=== PATIENT | female | born 1980 | race Caucasian/White ===

== ENCOUNTER 2018-11-19 09:30 | Emergency (ER) | payer MEDICAID, SELFPAY ==
[2018-11-19 09:32] VITALS: BP 133/78; PULSE 72; RESP 17; TEMP 36.7; O2SAT 97; BMI 39.3
--- NOTE | 2018-11-19 09:57 | ED.DEP ---
ED Disposition - Plan for ED Patient: Instructions: Acute Sinusitis Referrals: Roderick Good DO [NON CLINICAL AFFILIATE] -
--- NOTE | 2018-11-19 10:01 | ED.DEP ---
ED Disposition - Plan for ED Patient: Instructions: Acute Sinusitis Prescriptions: Guaifenesin/Pseudoephedrne HCl [Mucinex D ER 1,200-120 mg Tab] 1 each PO BID PRN #20 tab.er.12h PRN Reason: Cough/Congestion Referrals: Roderick Good DO [NON CLINICAL AFFILIATE] -
--- NOTE | 2018-11-19 10:05 | ED.VISSUMM ---
- ER Visit Summary Date of Service: 11/19/18 Chief Complaint: Sinus congestion History of Present Illness: The patient is a 38 F presenting with sinus congestion x2 days. Patient states that she has tried Tylenol at home. She has pain in both maxillary sinuses. She states she feels congested and has had rhinorrhea. She denies fever. Denies sore throat. Denies chest pain, shortness of breath. Denies cough. Denies abdominal pain, nausea, vomiting, diarrhea. Denies other complaints. Physical Examination: Vitals are stable. Patient is afebrile. Alert no acute distress. HEENT exam bilateral maxillary sinus tenderness. Pharynx is normal. Uvula midline. TMs normal bilaterally Neck is supple. No meningismus Lungs are clear and equal bilaterally. Heart is regular rate and rhythm. Abdomen is soft nontender nondistended. Extremities are unremarkable. Skin is warm and dry. No rash Remainder of exam is unremarkable. Emergency Department Course and Treatment: Patient was given prescription for Mucinex D. She is advised to follow-up with Dr. Good on-call for no doctor. Advised to return to ED for worsening complaints. Disposition: Discharge home Impression: Sinusitis This note was generated with [employer] dictation software. It may contain incorrect words, spelling, and punctuation that were not noted in review of the chart prior to signing ED Disposition - Plan for ED Patient: Instructions: Acute Sinusitis Prescriptions: Guaifenesin/Pseudoephedrne HCl [Mucinex D ER 1,200-120 mg Tab] 1 ea PO BID PRN #20 tab.er.12h PRN Reason: Cough/Congestion Prescription Printed Referrals: Roderick Good DO [NON CLINICAL AFFILIATE] -
== END 2018-11-19 10:38 | disposition home or self-care (01) ==
LOC: ED 10:21
PROVIDERS: Emergency Provider Emergency Medicine
DX: J32.9 Chronic sinusitis, unspecified (principal); Z72.0 Tobacco use
CPT/HCPCS: 99282

== ENCOUNTER → 2019-03-26 13:36 | Outpatient (CLI) | payer MEDICAID, SELFPAY ==
[2019-03-19 13:04] VITALS: BMI 39.3
--- NOTE | 2019-03-26 13:37 | BI_ITS ---
MAMMOGRAPHY - BILATERAL SCREENING REASON FOR EXAM: Female, 38 years old. Routine annual screening examination. PERTINENT HISTORY: Non-contributory. Remote right excisional breast biopsy. TECHNIQUE: Digital bilateral breast liat (3D mammographic acquisition) in the CC and MLO projections. 2-D mediolateral oblique (MLO) and craniocaudad (CC) views of both breasts were obtained. CAD: Full Field Digital Mammography with Computer Added Detection was performed. COMPARISON: Comparison is made with prior examination dated September 16, 2014. FINDINGS: Breast Composition: The breasts are extremely dense, which lowers the sensitivity of mammography. There are no dominant masses or suspicious calcifications. No other significant abnormalities are identified. There has been no significant change since the prior study. BI/SCREEN MAMM (CAD) W/LIAT BILAT IMPRESSION: Stable bilateral screening mammogram. Yearly follow-up mammogram recommended. (A) ASSESSMENT CATEGORY: BIRADS Category 1: Negative. A letter regarding these results will be sent to the patient by the facility within 30 days. Approximately 10% of breast cancers are not detected by mammography. A normal mammogram should not delay biopsy of a clinically suspicious abnormality. [id number] Electronically Signed: Sanjeev Manrqiue, at 8:46 EST , Service support ,
--- NOTE | 2019-03-26 14:10 | RAD_ITS ---
STUDY: X-RAY - LEFT KNEE REASON FOR EXAM: Female, 38 years old. Pain. TECHNIQUE: 2 view(s) of the knee. COMPARISON: None. FINDINGS: Normal visualized distal femur. Normal visualized proximal tibia and fibula. Normal proximal tibiofibular articulation. There is no acute fracture, dislocation or destructive osseous pathology. Normal medial femorotibial compartment. Normal lateral femorotibial compartment. Normal patellofemoral articulation. There is no demonstrated joint effusion. The soft tissue structures are unremarkable. RAD/Knee 1 or 2 Views IMPRESSION: Normal x-ray examination of the knee. Electronically Signed: Kendall Kelly DO at 19:51 EST Tel [phone], Service support ,
== END ==
PROVIDERS: PCP Internal Medicine; Referring Provider Internal Medicine; Visit Provider Internal Medicine
DX: Z12.31 Encounter for screening mammogram for malignant neoplasm of breast (principal); M25.562 Pain in left knee
CPT/HCPCS: 73560; 77063; 77067

== ENCOUNTER 2019-04-10 16:04 | Emergency (ER) | payer MEDICAID, SELFPAY ==
[2019-03-19 13:04] VITALS: BMI 39.3
[2019-04-10 16:05] VITALS: BP 125/87; PULSE 94; RESP 17; TEMP 36.7; O2SAT 97; BMI 39.6
--- NOTE | 2019-04-10 16:21 | ED.DCSUM_ITS ---
- ER Visit Summary Date of Service: 04/10/19 Chief Complaint: Cough History of Present Illness: The patient is a 38 F who presents with a cough that is been getting worse over the past 2 days. Patient also admits to some wheezing in her chest. Patient denies any sputum production. Patient admits to general myalgias. Patient states she feels short of breath at times. Patient denies any chest pain. Patient states she did have some recent upper respiratory congestion but states this has improved. Patient admits to general weakness but denies any headaches. Patient denies any rashes or hives. Physical Examination: Vital signs are stable. Patient is afebrile. Patient is in no acute distress. Oral mucosa is pink and moist. Oropharynx is clear. Neck is supple. Trachea is midline. There is no JVD. Heart was regular rate and rhythm. Lungs showed diffuse expiratory wheezing. There is good respiratory effort. There are no retractions noted. Abdomen is soft. Bowel sounds are normal. There is no tenderness. Cranial nerves II through XII are intact. There are no focal motor or sensory deficits noted. Test Results: Influenza swab was obtained and was negative. PA and lateral chest x-ray was obtained. There is no acute cardiopulmonary process. This was interpreted by the radiologist and myself. Emergency Department Course and Treatment: Patient was advised of her findings. Patient was instructed to follow-up with her primary care physician in 5 to 7 days. Patient was instructed to take [id number] decongestants and cough medicines as needed. Patient was instructed to drink plenty of fluids. Patient understood and was agreeable with the plan. All questions were answered. Disposition: Discharge home Impression: Viral bronchitis This note was generated with [employer] dictation software. It may contain incorrect words, spelling, and punctuation that were not noted in review of the chart prior to signing ED Disposition - Plan for ED Patient: Disposition: Home or Assisted Living Diagnosis: Viral upper respiratory tract infection with cough Instructions: BRONCHITIS, No Antibiotic (Adult) Referrals: Karissa Verma MD [Primary Care Provider] - 5-7 Days
[2019-04-10 16:38] VITALS: PULSE 887; RESP 18
[2019-04-10] MEDS: Ipratropium/Albuterol Sulfate 3 ML AMPUL.NEB INHALATION (16:38)
--- NOTE | 2019-04-10 16:58 | RAD_ITS ---
STUDY: X-RAY CHEST REASON FOR EXAM: Female, 38 years old. COUGH TECHNIQUE: Frontal and lateral views of the chest. COMPARISON: None. FINDINGS: The lungs are clear and expanded. There is no demonstrated pleural abnormality. Normal size heart. Normal mediastinum and chanda. Normal visualized pulmonary arteries. Normal visualized aortic arch and descending thoracic aorta. Normal visualized thoracic spine. Normal visualized ribs, clavicles, and shoulders. There is no demonstrated abnormality of the visualized soft tissue structures of the upper abdomen. RAD/Chest PA and Lateral IMPRESSION: Normal x-ray examination of the chest. Electronically Signed: Brad Busby MD at 17:21 EST , Service support ,
[2019-04-10 17:09] VITALS: BP 122/84; PULSE 88; RESP 16; O2SAT 97
== END 2019-04-10 18:24 | disposition home or self-care (01) ==
PROVIDERS: Emergency Provider Emergency Medicine; PCP Internal Medicine
DX: J20.8 Acute bronchitis due to other specified organisms (principal); I10 Essential (primary) hypertension; F41.9 Anxiety disorder, unspecified; Z72.0 Tobacco use
CPT/HCPCS: 71046; 87804; 94640; 99282

== ENCOUNTER → 2019-07-17 14:09 | Outpatient (CLI) | payer MEDICAID, SELFPAY ==
[2019-07-17 10:51] VITALS: BMI 38.8
[2019-07-17 15:11] LABS: Absolute Lymphocyte Count 3.14 X10^3/uL (0.83-4.51); Absolute Neutrophil Count 4.5 X10^3/uL (2.0-7.7); Basophil# 0.06 X10^3/uL; Basophil% 0.7 % (0-1); Eosinophil# 0.27 X10^3/uL; Eosinophils% 3.2 % (0-5); Hematocrit 42.5 % (37-47); Hemoglobin 13.9 g/dL (12.0-15.0); Lymphocyte # 3.14 X10^3/ul (4.0); Lymphocyte % 36.9 % (19-41); Mean Corp Hgb Conc 32.7 g/dL (32-36); Mean Corpuscular Hgb 28.7 pg (27.0-32.0); Mean Corpuscular Volume 87.6 fL (81-99); Mean Platelet Vol. 10.6 fl (6.2-12.0); Monocyte# 0.52 X10^3/uL; Monocyte% 6.1 % (0-10); NRBC Flagged by Analyzer 0 % (0-5); Neutrophil # 4.48 X10^3/uL (2.7-7.7); Neutrophil % 52.7 % (47-70); Platelet Count 242 K/mm3 (150-450); RBC Distribution Width CV 14.4 % (11.6-14.6); RBC Distribution Width SD 46.3 fl (35.1-43.9); Red Blood Count 4.85 M/mm3 (4.2-5.4); White Blood Count 8.5 K/mm3 (4.4-11.0)
[2019-07-17 15:24] LABS: ALB/GLOB Ratio 0.9 RATIO (0.9-2.4); AST(SGOT) 30 U/L (15-37); Alanine Aminotransfer ALT/SGPT 37 U/L (13-56); Albumin, Serum 3.5 g/dL (3.2-5.0); Alkaline Phosphatase 103 U/L (45-117); Anion Gap 6 (5-15); BUN 7 mg/dL (7-18); BUN/Creat Ratio 10.1 RATIO (10-20); Calcium,Total 8.9 mg/dL (8.5-10.1); Chloride 110 mmol/L (98-107); Creatinine, Serum 0.69 mg/dL (0.55-1.02); EST Glomerular Filtration Rate 99 mL/min (>60); Est Glom Filt Rate - Afr Amer 120 mL/min (>60); Globulin 3.9 g/dL (2.2-4.2); Glucose 114 mg/dL (74-106); Protein, Total 7.4 g/dL (6.4-8.2); Sodium Level 142 mmol/L (136-145)
== END ==
PROVIDERS: PCP Internal Medicine; Referring Provider Internal Medicine; Visit Provider Internal Medicine
DX: K58.9 Irritable bowel syndrome, unspecified (principal)
CPT/HCPCS: 80053; 85025

== ENCOUNTER 2019-09-25 11:58 | Emergency (ER) | payer MEDICAID, SELFPAY ==
[2019-09-17 09:06] VITALS: BMI 39.6
[2019-09-25 11:59] VITALS: BP 163/102; PULSE 112; RESP 16; TEMP 36.1; O2SAT 98; BMI 38.8
--- NOTE | 2019-09-25 12:05 | ED.DCSUM_ITS ---
History of Present Illness Chief Complaint: Allergic Reaction Narrative: 39-year-old female presents with itching and swelling of the face. She states she makes c at home and she states she uses the nontoxic resin. She wears gloves on her hands and has had reactions on her hands that she uses cortisone cream for. She believes she inadvertently touched her face and now she has itching and swelling of her face. She has no swelling of her airway. No trouble breathing or swallowing. There is no rash elsewhere. She has no new soaps, dyes, detergents, linens etc. Past Medical History - Allergies and Home Meds Allergies/Adverse Reactions: Allergies No Known Allergies Allergy (Verified 09/25/19 11:58) Primary Care Physician: Karissa Verma MD [Primary Care Provider] - Prior records reviewed: Yes Lives: With Family Smoking Status: Current every day smoker Alcohol: None Drugs: None Review of Systems General: Denies: Chills, Fever, Sweats Eyes: Denies: Visual changes - bilaterally, Diplopia ENT: Denies: Rhinorrhea, Sore throat Cardiovascular: Denies: Chest pain, Palpitations Respiratory: Denies: Dyspnea, Cough, Dyspnea on exertion Gastrointestinal: Denies: Abdominal pain, Nausea, Vomiting, Diarrhea, Melena, Hematochezia Genitourinary: Denies: Dysuria, Hematuria, Frequency Musculoskeletal: Denies: Back pain, Extremity Pain Skin: Reports: Rash. Denies: Wounds Neurological: Denies: Headache, Weakness, Numbness Physical Exam Vital Signs/Narrative: Vital Signs Temp Pulse Resp BP Pulse Ox 09/25/19 11:59 97 F L 112 H 16 163/102 H 98 General: Well nourished, Well developed, No Acute Distress Head: - - Generalized facial swelling and rash with slight erythema. She has edema under her eyelids. Eyes: Perrl, EOMI ENT: Moist mucous membranes, No rhinorrhea Neck: Supple, Nontender Cardiovascular: Regular rate, Regular rhythm Respiratory: No distress Skin: Normal color, Rash - Rash as described above Neurological: Alert, Oriented x3 Psychological: Normal affect, Normal Mood Diagnostic/Tx/Re-eval - Medical Decision Making Patient presents for evaluation of allergic reaction secondary to epoxy resin that she uses for making cups. Her exam only shows a localized reaction to the face. I will start her on prednisone for home. She is counseled to wear face protection and also wear gloves. She acknowledged understanding. She will return for any new or worsening symptoms. Patient stable for discharge. ED Disposition - Plan for ED Patient: Disposition: Home or Assisted Living Diagnosis: Contact dermatitis Instructions: ED General Allergic Reactions Prescriptions: predniSONE tablet 60 mg PO DAILY #15 tab Transmission Status: Pending to [id number] Referrals: Karissa Verma MD [Primary Care Provider] -
[2019-09-25] MEDS: predniSONE 20 MG Tablet 60 MG PO (12:41)
== END 2019-09-25 12:47 | disposition home or self-care (01) ==
LOC: ED 12:41
PROVIDERS: Emergency Provider Student in an Organized Health Care Education/Training Program; PCP Internal Medicine
DX: L23.89 Allergic contact dermatitis due to other agents (principal); F17.200 Nicotine dependence, unspecified, uncomplicated
CPT/HCPCS: 99283

== ENCOUNTER → 2019-10-24 | Outpatient (CLI) | payer MEDICAID, SELFPAY ==
[2019-09-25 11:59] VITALS: BMI 38.8
[2019-10-26 14:12] LABS: H. PYLORI STOOL AG Negative (Negative)
== END | disposition home or self-care (01) ==
PROVIDERS: PCP Internal Medicine
DX: K58.0 Irritable bowel syndrome with diarrhea (principal)
CPT/HCPCS: 83630; 87493; 87506

== ENCOUNTER 2020-08-22 15:41 | Emergency (ER) | payer MEDICAID, SELFPAY ==
[2020-08-22 15:42] VITALS: BP 147/93; PULSE 107; RESP 18; TEMP 36.1; O2SAT 99; BMI 40.6
== END 2020-08-22 16:12 | disposition left against medical advice (07) ==
LOC: ED 16:15
PROVIDERS: PCP Internal Medicine
DX: Z53.21 Procedure and treatment not carried out due to patient leaving prior to being seen by health care provider (principal)

== ENCOUNTER 2020-08-22 20:27 | Emergency (ER) | payer MEDICAID, SELFPAY ==
[2020-08-22 15:42] VITALS: BMI 40.6
[2020-08-22 20:27] VITALS: BP 136/85; PULSE 106; RESP 16; TEMP 36.3; O2SAT 97; BMI 39.6
--- NOTE | 2020-08-22 20:49 | RAD_ITS ---
STUDY: X-RAY - RIGHT HAND REASON FOR EXAM: Female, 39 years old. lump on posterior hand around 4-5th MC area, x several days with pain NKI area marked on lateral TECHNIQUE: 3 view(s) of the hand. COMPARISON: None. FINDINGS: Normal radiocarpal articulation. Normal distal radioulnar joint. Normal visualized carpal bones. Normal carpal articulations Normal carpometacarpal articulation of the thumb. Normal second through fifth carpometacarpal joints. Normal metacarpi. Normal metacarpophalangeal joint of the thumb. Normal interphalangeal joint of the thumb. Normal proximal and distal phalanges of the thumb. Normal metacarpophalangeal joints of the second through fifth fingers. Normal proximal and distal interphalangeal joints of the second through fifth fingers. Normal phalanges of the second through fifth fingers. The soft tissue structures are unremarkable. RAD/Hand Min 3 Views IMPRESSION: Normal x-ray examination of the hand. Electronically Signed: Arnaldo Piña MD at 21:38 EDT , Service support ,
--- NOTE | 2020-08-22 20:50 | EDS_ITS ---
HPI History of Present Illness Chief Complaint: Upper Extremity Injury Narrative Narrative: 39-year-old female presenting with right nontraumatic hand pain. On the dorsum of her hand. She recently noticed she has a spot that is swollen in the middle portion of the back of her hand. Patient states that she has pain with movement of the ring and middle finger in the location where the swelling is. She denies any trauma. She denies numbness or tingling. She denies redness or streaking. PFSH PFS Medical History (Updated 08/22/20 @ 20:51 by Esther Spivey) Anemia Anxiety Bronchitis Depression GERD (gastroesophageal reflux disease) H/O emotional problems Heart murmur High cholesterol High triglycerides History of kidney stones History of pneumonia HTN (hypertension) Hx of breast lump Hx of headache Hx: UTI (urinary tract infection) IBS (irritable bowel syndrome) Seasonal allergies Home Medications triamcinolone acetonide 0.5 % topical cream 1 applic TOPICAL BID #15 g 09/11/19 [Rx Last Taken Unknown] sertraline 100 mg tablet 100 mg PO DAILY #90 tab 09/16/19 [Rx Last Taken Unknown] sertraline 25 mg tablet 25 mg PO DAILY #90 tab 09/16/19 [Rx Last Taken Unknown] cholestyramine (with sugar) 4 gram oral powder 4 g PO BID PRN #378 g 09/17/19 [Rx Last Taken Unknown] prednisone 60 mg PO DAILY #15 tab 09/25/19 [Rx Last Taken Unknown] pantoprazole 40 mg tablet,delayed release 40 mg PO DAILY #90 tab 03/30/20 [Rx Last Taken Unknown] propranolol 120 mg capsule,24 hr,extended release 120 mg PO DAILY #90 cap 04/01/20 [Rx Last Taken Unknown] Allergy/AdvReac Type Severity Reaction Status Date / Time No Known Allergies Allergy Verified 08/22/20 20:29 Family History Father CAD (coronary artery disease) CVA (cerebral vascular accident) Heart disease Hypertension Myocardial infarction Alcoholism Depression Liver disease Mother Hypertension Anxiety Bowel disease Depression Liver disease Melanoma Mental disorder Grandfather Alcoholism Surgical History Hx of removal of ovary Social History Smoking Status: Current every day smoker tobacco type: cigarettes alcohol intake: never substance use type: does not use ROS ROS ED Constitutional Constitutional ED: Denies chills, frequent falls or subjective Eyes Eyes: Denies blurry vision or change in vision ENT ENT ED: Denies ear pain or rhinorrhea Cardiovascular Cardiovascular: Denies chest pain or palpitations Respiratory/Chest Respiratory/Chest: Denies cough or dyspnea Gastrointestinal Gastrointestinal: Denies abdominal pain or nausea Genitourinary Genitourinary ED: Denies dysuria or hematuria Musculoskeletal Musculoskeletal: Reports other Details: Right hand pain ; Denies myalgias Integumentary Denies abscess, Abrasions or rash Neurologic Neurologic: Denies headache(s), paresthesias or weakness Psychiatric Psychiatric: Denies anxiety or depression EXAM Physical Exam Const Vital Signs: 08/22/20 20:27 Temperature 97.3 F L Temperature Source Temporal Pulse Rate 106 H Respiratory Rate 16 Blood Pressure 136/85 H Blood Pressure Mean 102 Pulse Ox 97 Oxygen Delivery Method Room Air Positive well nourished HEENT normocephalic and atraumatic Resp normal respiratory effort and clear to auscultation bilaterally Cardio regular rate and regular rhythm Extremity Extremity Narrative: 2 cm area of swelling on the dorsal aspect of the right hand. There is no erythema or streaking. It is tender to palpation but not exquisitely. It does not appear to be an abscess. It is soft to the touch. Neuro oriented x3 Sensorium / Orientation: alert Psych mental status grossly normal Skin Lesions: no lesions Rashes: no rashes MDM MDM MDM Narrative Medical decision making narrative: Patient presenting with left hand pain this does appear to be consistent with a ganglion cyst on her right hand. I did o btain a hand x-ray which on my interpretation shows no acute fracture or subluxation. This area is not seen on x-ray. The radiologist does agree. Patient was offered analgesia and she requests a Kenalog shot for the inflammation. When her x-ray was negative she requested a wrist splint so that she did not have to bend her hands too much and it would not hurt. This was provided. Patient stable for discharge. Impression: 1. Right hand ganglion cyst Discharge Plan Triage Chief Complaint: Upper Extremity Injury ED Provider: Herb Holcomb Dx/Rx/DC Orders Instructions: Ganglion Cyst: Hand Prescriptions: No Action cholestyramine (with sugar) 4 gram powder 4 g PO BID PRN (Reason: diarrhea) Qty: 378 RF: 0 prednisone 20 MG tablet 60 mg PO DAILY Qty: 15 RF: 0 triamcinolone acetonide 0.5 % cream 1 applic TOPICAL BID Qty: 15 RF: 3 sertraline 100 mg tablet 100 mg PO DAILY Qty: 90 RF: 3 sertraline 25 mg tablet 25 mg PO DAILY Qty: 90 RF: 3 pantoprazole 40 mg tablet,delayed release (DR/EC) 40 mg PO DAILY Qty: 90 RF: 3 propranolol 120 mg capsule,extended release 24 hr 120 mg PO DAILY Qty: 90 RF: 3 Primary Care Provider: Karissa Verma Referrals: Karissa Verma MD [Primary Care Provider] - Brett Woodson MD [STAFF PHYSICIAN] - As soon as possible Disposition Disposition: Home, Self Care Discharge Date/Time: 08/22/20 23:05
[2020-08-22] MEDS: DiphenhydrAMINE 25 MG Capsule PO (21:13)
[2020-08-22] MEDS: Triamcinolone Acetonide 40 MG/ML Vial IM (21:14)
[2020-08-22 23:04] VITALS: RESP 16
== END 2020-08-22 23:05 | disposition home or self-care (01) ==
LOC: ED 21:01
PROVIDERS: Emergency Provider Student in an Organized Health Care Education/Training Program; PCP Internal Medicine
DX: M67.441 Ganglion, right hand (principal); F17.210 Nicotine dependence, cigarettes, uncomplicated; Z87.442 Personal history of urinary calculi; Z87.440 Personal history of urinary (tract) infections
CPT/HCPCS: 73130; 96372; 99283

== ENCOUNTER → 2020-10-06 11:25 | Outpatient (CLI) | payer MEDICAID, SELFPAY ==
[2020-10-06 10:50] VITALS: BMI 40.0
[2020-10-06 15:27] LABS: Anion Gap 5 (5-15); BUN 8 mg/dL (7-18); BUN/Creat Ratio 13.1 RATIO (10-20); Chloride 102 mmol/L (98-107); Creatinine, Serum 0.61 mg/dL (0.55-1.02); EST Glomerular Filtration Rate 114 mL/min (>60); Est Glom Filt Rate - Afr Amer 138 mL/min (>60); Glucose 103 mg/dL (74-106); Magnesium 1.9 mg/dL (1.6-2.6); Sodium Level 137 mmol/L (136-145)
== END ==
PROVIDERS: PCP Internal Medicine; Referring Provider Internal Medicine; Visit Provider Internal Medicine
DX: R25.2 Cramp and spasm (principal)
CPT/HCPCS: 36415; 80048; 83735

== ENCOUNTER 2020-11-16 08:30 | Emergency (ER) | payer MEDICAID, SELFPAY ==
[2020-11-16 08:30] VITALS: BP 147/95; PULSE 99; RESP 16; TEMP 36.3; O2SAT 96; BMI 40.6
[2020-11-16 09:36] LABS: Absolute Lymphocyte Count 2.73 X10^3/uL (0.83-4.51); Absolute Neutrophil Count 6.1 X10^3/uL (2.0-7.7); Basophil# 0.07 X10^3/uL; Basophil% 0.7 % (0-1); Eosinophil# 0.19 X10^3/uL; Eosinophils% 1.9 % (0-5); Hematocrit 42.9 % (37-47); Hemoglobin 14.1 g/dL (12.0-15.0); Lymphocyte # 2.73 X10^3/ul (0.83-4.51); Lymphocyte % 27.5 % (19-41); Mean Corp Hgb Conc 32.9 g/dL (32-36); Mean Corpuscular Hgb 28.8 pg (27.0-32.0); Mean Corpuscular Volume 87.6 fL (81-99); Mean Platelet Vol. 9.9 fl (6.2-12.0); Monocyte# 0.76 X10^3/uL; Monocyte% 7.6 % (0-10); NRBC Flagged by Analyzer 0 % (0-5); Neutrophil # 6.12 X10^3/uL (2.7-7.7); Neutrophil % 61.6 % (47-70); Platelet Count 257 K/mm3 (150-450); RBC Distribution Width SD 51.1 fl (35.1-43.9); White Blood Count 9.9 K/mm3 (4.4-11.0)
[2020-11-16 09:38] LABS: Color, Urine Yellow (Yellow); Glucose, Dipstick Normal (Normal); Ketone-Dipstick 5 mg/dl (Negative); Leukocyte Esterase-Dipstick 100 /ul (Negative); Nitrite-Dipstick Negative (Negative); Occult Blood-Urine 250 /ul (Negative); Protein-Dipstick 30 mg/dl (Negative); Urine Clarity Clear (Clear); Urine Urobilinogen 1 mg/dl (Normal)
[2020-11-16 09:44] LABS: Urine Bilirubin Dipstick 1 mg/dL (Negative)
[2020-11-16 09:46] LABS: Bacteria 1+ /hpf (None Seen); Red Blood Cells-Urine 0-5 SEEN /hpf (0-5); Squamous Epithelial Cells - UA 0-5 SEEN /hpf (5-10); White Blood Cells 0-5 SEEN /hpf (0-5)
[2020-11-16 09:47] LABS: Internal QC Validated? YES +Cl - CLEAR BKGD; Mucous, Urine 1+ /hpf (<or=2+); Pregnancy, Urine Negative Negative
[2020-11-16 09:50] LABS: Anion Gap 3 (5-15); BUN 7 mg/dL (7-18); BUN/Creat Ratio 11.7 RATIO (10-20); Calcium,Total 8.8 mg/dL (8.5-10.1); Chloride 106 mmol/L (98-107); EST Glomerular Filtration Rate 117 mL/min (>60); Est Glom Filt Rate - Afr Amer 141 mL/min (>60); Estimated Creatinine Clearance 92.17 ml/min; Glucose 111 mg/dL (74-106); Potassium 3.4 mmol/L (3.5-5.1); Sodium Level 138 mmol/L (136-145)
--- NOTE | 2020-11-16 11:05 | EDS_ITS ---
HPI History of Present Illness Chief Complaint: Complaint Narrative Narrative: Patient is a 40-year-old female who states about 10 days ago she began to feel mild dysuria. She states she did a virtual visit and was placed on a short round of Keflex. She states despite taking it she had no improvement of symptoms and therefore did another virtual visit. She was changed to Bactrim and took this for a few more days but had no improvement of symptoms. She states she is now having increased left-sided flank pain along with some hematuria. She denies any fevers or chills or vaginal discharge. She denies any concern for STD. She states that however as symptoms have not resolved with her outpatient treatment she presents for evaluation [facility] Medical History Anemia Anxiety Bronchitis Cramps of lower extremity Depression GERD (gastroesophageal reflux disease) H/O emotional problems Heart murmur High cholesterol High triglycerides History of kidney stones History of pneumonia HTN (hypertension) Hx of breast lump Hx of headache Hx: UTI (urinary tract infection) IBS (irritable bowel syndrome) Plantar fasciitis Seasonal allergies Home Medications pantoprazole 40 mg tablet,delayed release 40 mg PO DAILY #90 tab 03/30/20 [Rx Last Taken Unknown] sertraline 100 mg tablet 100 mg PO DAILY #90 tab 08/26/20 [Rx Last Taken Unknown] sertraline 25 mg tablet 25 mg PO DAILY #90 tab 08/26/20 [Rx Last Taken Unknown] propranolol 80 mg capsule,24 hr,extended release 80 mg PO DAILY #90 cap 10/21/20 [Rx Last Taken Unknown] levofloxacin 500 mg PO DAILY #10 tab 11/16/20 [Rx Last Taken Unknown] phenazopyridine [Azo] 190 mg PO TID PRN 11/16/20 [History Last Taken Unknown] Allergy/AdvReac Type Severity Reaction Status Date / Time No Known Allergies Allergy Verified 11/16/20 08:33 Family History Father CAD (coronary artery disease) CVA (cerebral vascular accident) Heart disease Hypertension Myocardial infarction Alcoholism Depression Liver disease Mother Hypertension Anxiety Bowel disease Depression Liver disease Melanoma Mental disorder Grandfather Alcoholism Surgical History Hx of removal of ovary Social History Smoking Status: Current every day smoker tobacco type: cigarettes alcohol intake: never substance use type: does not use ROS ROS ED Constitutional Constitutional ED: Denies chills or fever(s) ENT ENT ED: Denies sore throat Cardiovascular Cardiovascular: Denies chest pain Respiratory/Chest Respiratory/Chest: Denies cough or dyspnea Gastrointestinal Gastrointestinal: Reports abdominal pain; Denies diarrhea, nausea or vomiting Genitourinary Genitourinary ED: Reports dysuria, hematuria and other Details: Positive left CVA pain Musculoskeletal Musculoskeletal: Denies myalgias Integumentary Denies rash Neurologic Neurologic: Denies headache(s) Hematologic/Lymphatic Hematologic/Lymphatic: Denies easy bleeding or easy bruising EXAM Physical Exam Const Vital Signs: 11/16/20 08:30 Temperature 97.4 F L Temperature Source Temporal Pulse Rate 99 Respiratory Rate 16 Blood Pressure 147/95 H Blood Pressure Mean 112 Pulse Ox 96 Oxygen Delivery Method Room Air Positive well nourished and well developed General Appearance ED: well developed HEENT Reports moist mucous membranes Eyes PERRL and EOMs intact bilaterally Neck supple Resp normal respiratory effort and clear to auscultation bilaterally Cardio regular rate and regular rhythm GI normal to inspection, nondistended, normoactive bowel sounds, non-tender and non-distended Auscultation: normoactive bowel sounds Palpation: soft Back/Spine Back/Spine Narrative: Positive left CVA pain Extremity normal to inspection Neuro oriented x3 and CN's II-XII intact bilaterally Sensorium / Orientation: alert Psych mental status grossly normal Skin no rashes or lesions noted MDM MDM MDM Narrative Medical decision making narrative: Patient presented to the ER afebrile with a soft nonsurgical abdomen. She did have flank pain and reported 10 days worth of symptoms which could lead to a pyelonephritis. I like to perform basic laboratory studies and repeat urine sample. Labs show no signs of acute kidney injury or elevation to her white blood cell count to suggest systemic infection. Urine does show persistent bacteria with no signs of contamination. Therefore I feel patient does have a new onset pyelonephritis but as she is not uroseptic or having acute kidney injury she does not need to be admitted and can be discharged on Levaquin while the urine culture is pending Lab Data Labs: Laboratory Results - last 24 hr 11/16/20 11/16/20 11/16/20 09:20 09:20 09:20 WBC 9.9 RBC 4.90 Hgb 14.1 Hct 42.9 MCV 87.6 MCH 28.8 MCHC 32.9 RDW Std Deviation 51.1 H RDW Coeff of Leda 16.0 H Plt Count 257 MPV 9.9 Immature Gran % (Auto) 0.700 Neut % (Auto) 61.6 Lymph % (Auto) 27.5 Banks % (Auto) 7.6 Eos % (Auto) 1.9 Baso % (Auto) 0.7 Absolute Neuts (auto) 6.1 Absolute Lymphs (auto) 2.73 Nucleated RBC % 0 Sodium 138 Potassium 3.4 L Chloride 106 Carbon Dioxide 29.0 Anion Gap 3 L BUN 7 Creatinine 0.60 Estim Creat Clear Calc 92.17 Est GFR (MDRD) Af Amer 141 Est GFR (MDRD) Non-Af 117 BUN/Creatinine Ratio 11.7 Glucose 111 H Calcium 8.8 Urine Color Yellow Urine Clarity Clear Urine pH 6.0 Ur Specific [place] 1.030 Urine Protein 30 H Urine Glucose (UA) Normal Urine Ketones 5 H Urine Occult Blood 250 H Urine Nitrite Negative Urine Bilirubin 1 H Urine Urobilinogen 1 H Ur Leukocyte Esterase 100 H Urine RBC 0-5 SEEN Urine WBC 0-5 SEEN Ur Squamous Epith Cells 0-5 SEEN Urine Bacteria 1+ Urine Mucus 1+ Urine Test Negative Discharge Plan Triage Chief Complaint: Complaint ED Provider: Donald Amador Dx/Rx/DC Orders Clinical Impression: Acute pyelonephritis Instructions: Kidney Infec Dc Prescriptions: New levofloxacin 500 mg tablet 500 mg PO DAILY Qty: 10 RF: 0 No Action phenazopyridine [Azo] 95 mg Tablet 190 mg PO TID PRN (Reason: burning) RF: 0 pantoprazole 40 mg tablet,delayed release (DR/EC) 40 mg PO DAILY Qty: 90 RF: 3 sertraline 100 mg tablet 100 mg PO DAILY Qty: 90 RF: 3 sertraline 25 mg tablet 25 mg PO DAILY Qty: 90 RF: 3 propranolol 80 mg capsule,extended release 24 hr 80 mg PO DAILY Qty: 90 RF: 1 Primary Care Provider: Care Physician,No Primary Referrals: Laya Jimenez DO [STAFF PHYSICIAN] - Care Physician,No Primary [Primary Care Provider] - Disposition Disposition: Home, Self Care
[2020-11-16 11:18] VITALS: BP 128/82
== END 2020-11-16 11:19 | disposition home or self-care (01) ==
PROVIDERS: Emergency Provider Emergency Medicine
DX: N10 Acute pyelonephritis (principal); I10 Essential (primary) hypertension; E78.00 Pure hypercholesterolemia, unspecified; K21.9 Gastro-esophageal reflux disease without esophagitis; F17.210 Nicotine dependence, cigarettes, uncomplicated; Z79.899 Other long term (current) drug therapy; Z87.440 Personal history of urinary (tract) infections; Z87.442 Personal history of urinary calculi
CPT/HCPCS: 80048; 81001; 81025; 85025; 87086; 99283; A4216

== ENCOUNTER 2021-01-04 14:27 | Emergency (ER) | payer MEDICAID, SELFPAY ==
[2021-01-04 14:27] VITALS: BP 144/94; PULSE 116; RESP 18; TEMP 36.4; O2SAT 98; BMI 41.0
--- NOTE | 2021-01-04 16:06 | ED.RN ---
THS NURSE WAS ASKED BY THE TRIAGE NURSE TO TALK TO THE PT. PT UPSET THAT SHE HAS NOT BEEN SEEN YET. I ATTEMPTED TO EXPLAIN TO THE PT HOW TRIAGE WORKS AND HOW PATIENT'S GO BACK TO THE ROOMS. PT YELLING I'M BE IGNORED AND OVERLOOKED. WHY ARE THESE OTHER PATIENTS HERE. YOU HAVE TO TELL ME WHY THEY ARE HERE. WHY ARE THEY GOING BACK BEFORE ME. I ATTEMPTED TO EXPLAIN TO THE PT THAT I AM NOT PERMITTED TO TELL HER WHY OTHER PATIENT ARE IN THE ER. THE PT YELLING LOUDER AT THIS NURSE. PT DEMANDING TO KNOW WHY OTHER PATIENT ARE IN THE ER. AGAIN, THE PT WAS INFORMED THAT I WILL NOT DISCUSS WITH HER THE REASON OTHER PATIENTS ARE IN THE ER. PT CAME IN TO THE DEPARTMENT AROUND THIS TIME AND STARTED YELLING AT STAFF. PT STATES DR THEODORE SENT ME HERE YOU HAVE TO SEE ME RIGHT NOW. PT AGAIN INFORMED HOW TRIAGE WORKS. PT STATES I'M GOING TO GO HOME AND CALL 9--1 AND COME BACK TO BE SEEN SO I GET A BED NOW. I AGAIN INFORMED THE PT THAT SHE WOULD GO BACK TO TRIAGE IF THERE ARE ANY OTHER PATIENT THAT HAVE A HIGHER ACUITY THAN HER. THE PT CONTINUES TO YELL AT THIS NURSE. THE CONTINUES TO YELL AT STAFF. PT STATES FUCK YOU. I'M GOING TO GO TO [facility]. YELLING WHEN THIS HOSPITAL HAS NO PATIENTS I HOPE ALL OF YOU NURSES WHO TOOK AN OATH TO HELP PEOPLE ARE IN THE UNEMPLOYMENT LINE.
--- NOTE | 2021-01-04 16:07 | ED.RN ---
PT LOUDLY VERBALIZING DISPLEASURE OF WAIT TIME. PT MADE MULTIPLE TRIPS OUTSIDE WHILE YELLING ABOUT HER CARE. PT CALLED HER AND THEN HE CAME IN AND YELLED AT STAFF. PT LWBS. CHARGE NURSE TULIO MCMAHON AND TABATHA ANTUNEZ PRESENT DURING VERBAL DE-ESCALATION.
== END 2021-01-04 16:06 | disposition left against medical advice (07) ==
LOC: ED 16:21
PROVIDERS: PCP Internal Medicine
DX: R69 Illness, unspecified (principal); Z53.21 Procedure and treatment not carried out due to patient leaving prior to being seen by health care provider

== ENCOUNTER 2021-04-27 11:37 | Outpatient (CLI) | payer MEDICAID, SELFPAY ==
[2021-04-27 12:24] LABS: Absolute Lymphocyte Count 2.46 X10^3/uL (0.83-4.51); Absolute Neutrophil Count 4.9 X10^3/uL (2.0-7.7); Basophil# 0.07 X10^3/uL; Basophil% 0.8 % (0-1); Eosinophil# 0.25 X10^3/uL; Hematocrit 41.7 % (37-47); Hemoglobin 13.7 g/dL (12.0-15.0); Lymphocyte # 2.46 X10^3/ul (0.83-4.51); Lymphocyte % 29.6 % (19-41); Mean Corp Hgb Conc 32.9 g/dL (32-36); Mean Corpuscular Hgb 28.4 pg (27.0-32.0); Mean Corpuscular Volume 86.3 fL (81-99); Mean Platelet Vol. 10.4 fl (6.2-12.0); Monocyte# 0.58 X10^3/uL; NRBC Flagged by Analyzer 0 % (0-5); Neutrophil # 4.92 X10^3/uL (2.7-7.7); Neutrophil % 59.1 % (47-70); Platelet Count 263 K/mm3 (150-450); RBC Distribution Width CV 14.5 % (11.6-14.6); RBC Distribution Width SD 45.8 fl (35.1-43.9); Red Blood Count 4.83 M/mm3 (4.2-5.4); White Blood Count 8.3 K/mm3 (4.4-11.0)
[2021-04-27 13:04] LABS: ALB/GLOB Ratio 0.8 RATIO (0.9-2.4); AST(SGOT) 44 U/L (15-37); Alanine Aminotransfer ALT/SGPT 38 U/L (13-56); Albumin, Serum 3.4 g/dL (3.2-5.0); Alkaline Phosphatase 88 U/L (45-117); Anion Gap 6 (5-15); BUN 6 mg/dL (7-18); BUN/Creat Ratio 9.6 RATIO (10-20); Calcium,Total 8.4 mg/dL (8.5-10.1); Chloride 106 mmol/L (98-107); Cholesterol 202 mg/dL (200); Creatinine, Serum 0.62 mg/dL (0.55-1.02); EST Glomerular Filtration Rate 111 mL/min (>60); Est Glom Filt Rate - Afr Amer 134 mL/min (>60); Globulin 4.1 g/dL (2.2-4.2); Glucose 104 mg/dL (74-106); High Density Lipoprotein 35 mg/dL; Potassium 3.5 mmol/L (3.5-5.1); Protein, Total 7.5 g/dL (6.4-8.2); Sodium Level 138 mmol/L (136-145); Triglycerides 262 mg/dL; Very Low Density Lipoprotein 52 mg/dL (5-40)
== END 2021-04-27 23:59 | disposition home or self-care (01) ==
LOC: BIMLAB 11:38
PROVIDERS: PCP Internal Medicine; Referring Provider Internal Medicine; Visit Provider Internal Medicine
DX: I10 Essential (primary) hypertension (principal)
CPT/HCPCS: 36415; 80053; 80061; 85025

== ENCOUNTER → 2021-12-08 | Outpatient (CLI) | payer MEDICAID, SELFPAY ==
[2021-12-15 11:06] LABS: HPV APTIMA, High Risk Negative (Negative)
== END | disposition home or self-care (01) ==
LOC: LABSPEC 14:09
PROVIDERS: PCP Internal Medicine; Visit Provider Student in an Organized Health Care Education/Training Program
DX: Z12.4 Encounter for screening for malignant neoplasm of cervix (principal)
CPT/HCPCS: 87624; 88175; G0145

== ENCOUNTER → 2022-05-19 | Outpatient (CLI) | payer MEDICAID, SELFPAY ==
[2022-05-19 16:44] LABS: Absolute Lymphocyte Count 2.94 X10^3/uL (0.83-4.51); Absolute Neutrophil Count 6.8 X10^3/uL (2.0-7.7); Basophil# 0.09 X10^3/uL; Basophil% 0.8 % (0-1); Eosinophil# 0.21 X10^3/uL; Eosinophils% 1.9 % (0-5); Hematocrit 41.1 % (37-47); Hemoglobin 13.6 g/dL (12.0-15.0); Lymphocyte # 2.94 X10^3/ul (0.83-4.51); Lymphocyte % 27.1 % (19-41); Mean Corp Hgb Conc 33.1 g/dL (32-36); Mean Corpuscular Hgb 28.9 pg (27.0-32.0); Mean Corpuscular Volume 87.4 fL (81-99); Mean Platelet Vol. 10.1 fl (6.2-12.0); Monocyte# 0.75 X10^3/uL; Monocyte% 6.9 % (0-10); NRBC Flagged by Analyzer 0 % (0-5); Neutrophil # 6.81 X10^3/uL (2.7-7.7); Neutrophil % 62.7 % (47-70); Platelet Count 236 K/mm3 (150-450); RBC Distribution Width SD 50.9 fl (35.1-43.9); White Blood Count 10.9 K/mm3 (4.4-11.0)
[2022-05-19 17:04] LABS: Hemoglobin A1c 6.1 % (3.8-5.6)
[2022-05-19 17:23] LABS: ALB/GLOB Ratio 0.8 RATIO (0.9-2.4); AST(SGOT) 55 U/L (15-37); Alanine Aminotransfer ALT/SGPT 50 U/L (13-56); Albumin, Serum 3.4 g/dL (3.2-5.0); Alkaline Phosphatase 102 U/L (45-117); Anion Gap 7 (5-15); BUN 9 mg/dL (7-18); BUN/Creat Ratio 12.2 RATIO (10-20); Calcium,Total 9.2 mg/dL (8.5-10.1); Chloride 105 mmol/L (98-107); Cholesterol 214 mg/dL (200); Creatinine, Serum 0.74 mg/dL (0.55-1.02); EST Glomerular Filtration Rate 91 mL/min (>60); Est Glom Filt Rate - Afr Amer 111 mL/min (>60); Globulin 4.1 g/dL (2.2-4.2); Glucose 135 mg/dL (74-106); High Density Lipoprotein 37 mg/dL; Potassium 3.8 mmol/L (3.5-5.1); Protein, Total 7.5 g/dL (6.4-8.2); Sodium Level 138 mmol/L (136-145); Triglycerides 392 mg/dL; Very Low Density Lipoprotein 78 mg/dL (5-40)
== END | disposition home or self-care (01) ==
LOC: BIMLAB 16:09
PROVIDERS: PCP Internal Medicine; Referring Provider Internal Medicine; Visit Provider Internal Medicine
DX: I10 Essential (primary) hypertension (principal); E66.01 Morbid (severe) obesity due to excess calories; Z68.41 Body mass index [BMI] 40.0-44.9, adult
CPT/HCPCS: 36415; 80053; 80061; 83036; 85025

== ENCOUNTER → 2022-07-28 | Outpatient (CLI) | payer MEDICAID, SELFPAY | END | disposition home or self-care (01) | LOC: SL 09:55 | PROVIDERS: PCP Internal Medicine; Referring Provider Nurse Practitioner Family; Visit Provider Nurse Practitioner Family | DX: G47.33 Obstructive sleep apnea (adult) (pediatric) (principal) | CPT/HCPCS: 98960; G0463 ==

== ENCOUNTER → 2022-12-16 | Outpatient (CLI) | payer MEDICAID, SELFPAY ==
--- NOTE | 2022-12-16 10:40 | BI_ITS ---
MAMMOGRAPHY - BILATERAL SCREENING REASON FOR EXAM: Female, 42 years old. Routine annual screening examination. PERTINENT HISTORY: Non-contributory. Prior right excisional breast biopsy. TECHNIQUE: Digital bilateral breast liat (3D mammographic acquisition) in the CC and MLO projections. 2-D mediolateral oblique (MLO) and craniocaudad (CC) views of both breasts were obtained. CAD: Full Field Digital Mammography with Computer Added Detection was performed. COMPARISON: Comparison is made with prior study March 26, 2019. FINDINGS: Breast Composition: The breasts are extremely dense, which lowers the sensitivity of mammography. There are no dominant masses or suspicious calcifications. No other significant abnormalities are identified. There has been no significant change since the prior study. BI/SCRN MAMM (CAD)W/ILAT BILAT IMPRESSION: Stable bilateral screening mammogram. Yearly follow-up mammogram recommended. (A) ASSESSMENT CATEGORY: BIRADS Category 1: Negative. A letter regarding these results will be sent to the patient by the facility within 30 days. Approximately 10% of breast cancers are not detected by mammography. A normal mammogram should not delay biopsy of a clinically suspicious abnormality. [id number] Electronically Signed: Sanjeev Manrique MD at 12:08 EDT ,
== END | disposition home or self-care (01) ==
LOC: OPBI 10:39
PROVIDERS: PCP Internal Medicine; Referring Provider Internal Medicine; Visit Provider Internal Medicine
DX: Z12.31 Encounter for screening mammogram for malignant neoplasm of breast (principal)
CPT/HCPCS: 77063; 77067

== ENCOUNTER → 2023-02-22 | Outpatient (CLI) | payer MEDICAID, SELFPAY ==
[2023-02-22 12:53] LABS: Cholesterol 203 mg/dL (200); High Density Lipoprotein 31 mg/dL; T4 Free Direct 1.16 ng/dL (0.76-1.46); Thyroid Stim Hormone (TSH) 1.34 uIU/mL (0.358-3.74); Triglycerides 331 mg/dL; Very Low Density Lipoprotein 66 mg/dL (5-40)
[2023-02-22 13:24] LABS: Hemoglobin A1c 5.5 % (3.8-5.6)
== END | disposition home or self-care (01) ==
LOC: BIMLAB 11:33
PROVIDERS: PCP Internal Medicine; Referring Provider Internal Medicine; Visit Provider Internal Medicine
DX: N92.6 Irregular menstruation, unspecified (principal); R73.03 Prediabetes; I10 Essential (primary) hypertension
CPT/HCPCS: 36415; 80061; 83036; 84439; 84443

== ENCOUNTER → 2023-04-18 | Outpatient (CLI) | payer MEDICAID, SELFPAY ==
--- OUTSIDE RECORDS SUMMARY | 2023-04-18 20:50 | XMS RPT_ITS | CCD ---
Author Name Unknown Address [email or web address] [place] [address] Organization [facility] Care Team Providers Care Crew Foreman Name Role Phone DONCA, CARMEN Unavailable Unavailable DUCHON, METHOD Unavailable Unavailable DUCHON, METHOD Unavailable Unavailable DAREBOAZ ANAND Unavailable Unavailable DONCA, CARMEN Unavailable Unavailable DUCHON, METHOD Unavailable Unavailable SANDY JERRY Unavailable Unavailable DUCHON, METHOD Unavailable Unavailable DUCHON, METHOD Unavailable Unavailable DONCA, CARMEN Unavailable Unavailable Maame Gunderson Unavailable Unavailable Karissa Theodore Unavailable Unavailable Update Needed Unavailable Unavailable PHYSICIAN, NONE Primary Care Physician Unavailab ankit SILVA MD, CALVIN Osei Attending Unavail able PHYSICIAN, NONE Primary Care Unavailable WAQAR SADLER Attending Unavailable WAQAR SADLER Primary Care Unavailable WAQAR SADLER Admitting Unavailable KARISSA THEODORE MD Referring Unavailable KARISSA THEODORE MD Consulting Unavailable PROVIDER, UNKNOWN Consulting Unavailable ALIREZA CAI DO Attending Unavailable ALIREZA CAI DO Primary Care Unavailable ALIREZA CAI DO Admitting Unavailable Allergies Allergy Classification Reported Allergen(s) Allergy Type Date of Onset Reaction(s) Facility (1 source) Azithromycin Drug Allergy [facility]: Medications Completed/Discontinued Medications Medication Drug Class(es) Dates Sig (Normalized) Sig (Original) albuterol 0.83 mg/ml inhalant solution (1 source) beta2-Adrenergic Agonist Start: 07-07-2014 Albuterol Sulfate (2.5 MG/3ML) 0.083% Inhalation Nebulization Solution Quantity: 75 Refills: 0 DO Start : 07-Jul-2014 Active dicyclomine hydrochloride 20 mg oral tablet (1 source) Anticholinergic Start: 09-30-2019 take 1 tablet by mouth 30 minutes before mealtime for muscle spasms Dicyclomine HCl - 20 MG Oral Tablet TAKE 1 TABLET 30 MINUTES BEFORE MEALS AND BEDTIME FOR BOWEL SPASM Quantity: 120 Refills: 11 Jalyn Maame CLARKE Start : 30-Sep-2019 Active fluticasone propionate 0.05 mg/actuat metered dose nasal spray (1 source) Corticosteroid Start: 04-11-2014 Fluticasone Propionate 50 MCG/ACT Nasal Suspension Quantity: 16 Refills: 0 DO Start : 11-Apr-2014 Active pantoprazole 40 mg delayed release oral tablet (1 source) Proton Pump Inhibitor Pantoprazo le Sodium 40 MG Oral Tablet Delayed Release Refills: 0 DO Active polyethylene glycol 3350 843727 mg / potassium chloride 2970 mg / sodium bicarbonate 6740 mg / sodium chloride 5860 mg / sodium sulfate 68580 mg powder for oral solution (1 source) Osmotic Laxative Start: 09-30-2019 PEG-3350/Electroly gretel 236 GM Oral Solution Reconstituted TAKE DIRECTED. Quantity: 1 Refills: 0 Maame Barrett Start : 30-Sep-2019 Active 4000 ML Bottle propranolol hydrochloride 20 mg oral tablet (1 source) beta-Adrenergic Choco Propranolol HCl - 20 MG Oral Tablet Refills: 0 DO Active sertraline 100 mg oral tablet (1 source) Serotonin Reuptake Inhibitor Start: 11-18-2013 Sertraline HCl - 100 MG Oral Tablet Quantity: 30 Refills: 0 DO Start : 18-Nov-2013 Active varenicline 1 mg oral tablet (1 source) Partial Cholinergic Nicotinic Agonist Start: 09-22-2014 Chantix 1 MG Oral Tablet Quantity: 60 Refills: 0 DO Start : 22-Sep-2014 Active Problems Active Problems Problem Classification Problem Date Documented Da te Episodic/Chronic Abdominal pain (1 source) Generalized abdominal pain; Translations: [Intermittent generalized abdominal pain] Episodic Calculus of urinary tract (2 sources) History of calculus of kidney; Translations: [Kidney stone] Episodic Coronary atherosclerosis and other heart disease (1 source) Coronary atherosclerosis and other heart disease Onset: 7 Disorders of lipid metabolism (1 source) Mixed hyperlipidemia; Translations: [Mixed hyperlipidemia] Onset: 7 Chronic Esophageal disorders (1 source) Gastroesophageal reflux disease; Translations: [Chronic GERD] Chronic Essential hypertension (1 source) Essential (primary) hypertension; Translations: [Essential (primary) hypertension] Onset: 7 Chronic Essential hypertension (1 source) Essential hypertension Onset: 7 Genitourinary symptoms and ill-defined conditions (1 source) Female stress incontinence; Translations: [Stress incontinence, female] Chronic Genitourinary symptoms and ill-defined conditions (1 source) Blood in urine; Translations: [Hematuria] Episodic Headache, including migraine (1 source) Headache, including migraine Onset: 8 Lymphadenitis (1 source) Localized enlarged lymph nodes; Translations: [Localized enlarged lymph nodes] Onset: 8 Episodic Other connective tissue disease (2 sources) Pain in left finger(s); Translations: [Pain in left finger(s)] Onset: 2 Episodic Other gastrointestinal disorders (1 source) Irritable bowel syndrome with diarrhea; Translations: [Irritable bowel syndrome with diarrhea] Chronic Other gastrointestinal disorders (1 source) Bloating symptom; Translations: [Flatulence/gas pain/belching] Episodic Other gastrointestinal disorders (2 sources) Personal history of other diseases of the digestive system; Translations: [History of irritable bowel syndrome] Episodic Other nutritional; endocrine; and metabolic disorders (1 source) Lactose intolerance, unspecified; Translations: [Lactose intolerance, unspecified] Chronic Other skin disorders (1 source) Localized swelling, mass and lump, neck; Translations: [Localized swelling, mass and lump, neck] Onset: 8 Episodic Screening and history of mental health and substance abuse codes (1 source) H/O: depression; Translations: [History of depression] Episodic Skin and subcutaneous tissue infections (1 source) Cellulitis of finger; Translations: [Cellulitis of unspecified finger] Onset: 2 Episodic Unclassified (1 source) Obstructive sleep apnea (adult)(pediatric); Translations: [Obstructive sleep apnea (adult) (pediatric)] Onset: 8 Chronic Unclassified (1 source) Palpitations / R00.2(ICD-10) Onset: 7 Unclassified (1 source) Localized enlarged lymph nodes / R59.0(ICD-10) Onset: 8 Unclassified (1 source) Hyperglycemia, unspecified / R73.9(ICD-10) Onset: 7 Unclassified (1 source) Acute maxillary sinusitis, unspecified / J01.00(ICD-10) Onset: 8 Unclassified (1 source) Localized swelling, mass and lump, neck / R22.1(ICD-10) Onset: 8 Unclassified (1 source) Obstructive sleep apnea (adult) (pediatric) / G47.33(ICD-10) Onset: 8 Urinary tract infections (1 source) Recurrent urinary tract infection; Translations: [Recurrent UTI] Episodic Past or Other Problems Problem Classification Problem Date Documented Da te Episodic/Chronic Cardiac dysrhythmias (1 source) Palpitations; Translations: [Palpitations] Onset: 12-22-2016 Episodic Diabetes mellitus without complication (1 source) Hyperglycemia, unspecified; Translations: [Hyperglycemia, unspecified] Onset: 12-22-2016 Episodic Headache, including migraine (1 source) Headache; Translations: [Headache] Onset: 03-21-2017 Episodic Results Test Name Value Interpretation Reference Range Facil ity Vital Signs Date Time Vital Sign Value Performing Clinician Jake pineda 01-19-2022 13:50-0500 Blood Pressure Location CALVIN SILVA MD [facility] 01-19-2022 13:50-0500 Blood Pressure Method CALVIN SILVA MD [facility] 01-19-2022 13:50-0500 Body temperature 97.7 [degF] CALVIN SILVA MD [facility] 01-19-2022 13:50-0500 Diastolic Blood Pressure Non-Invasive 76 1 CALVIN SILVA MD [facility] 01-19-2022 13:50-0500 Heart rate 86 /min CALVIN SILVA MD [facility] 01-19-2022 13:50-0500 Respiratory rate 18 /min CALVIN SILVA MD [facility] 01-19-2022 13:50-0500 Systolic Blood Pressure Non-Invasive 147 1 CALVIN SILVA MD [facility] Encounters Encounter Date Encounter Type Care Provider Facility Start: 03-30-2023 End: 03-31-2023 Emergency department patient visit WAQAR SADLER [facility] Start: 11-25-2022 End: 11-26-2022 Emergency department patient visit ALIREZA KAHN [facility] Start: 01-19-2022 End: 01-19-2022 Emergency department patient visit CALVIN SILVA MD Facility:B Start: 01-19-2022 End: 01-19-2022 Emergency department patient visit CALVIN SILVA MD [facility] Start: 06-20-2017 Ambulatory CARMEN DONCA Facility: UNKNOWN Start: 06-09-2017 Ambulatory METHOD DUCHON Facility: UNKNOWN Start: 03-21-2017 Ambulatory METHOD DUCHON Facility: UNKNOWN Start: 12-22-2016 Ambulatory CARMEN DONCA Facility: UNKNOWN Procedures Date Procedure Procedure Detail Performing Clinician Start: 10-02-2019 Colonoscopy Maame puente Start: 09-30-2019 Endoscopy - Upper GI Dalia Gunderson Start: 09-30-2019 Iaad ia mult step me thod nos each organism Maame Gunderson Start: 09-30-2019 Iadna-dna/rna gi pth gn multiplex probe tq 6-11 Maame Gunderson Start: 09-30-2019 Inf agent det nuclei c acid clostridium amp probe Maame Gunderson Excision of cyst of ovary Dalia Gunderson Neuroplasty and lamb sposition of median nerve at carpal tunnel Maame Gunderson Oophorectomy Maame Gunderson Payers Date Payer Category Payer Unknown [id number] 1980 Unknown [id number] 1980 Unknown [id number] 1980 Unknown [id number] Unknown [id number] Social History Date Type Detail Facility Tobacco smoking status No Smoking Status Entered [facility] Sex Assigned At Female [facility] NEGATED: Highlighted row - - - [facility] Work Phone: Functional Status Date Assessment Result Facility 01-19-2022 Functional Status Standard Safet y ID band on, Call device within reach, Bed in low position, Wheels locked, Upper/Half-Length side-rails up, personal items within reach, Bedside Cart Locked, Visitor at bedside, Safety level maintained [facility] NEGATED: Highlighted row Functional performance Functional status health issues are not documented Disease [facility] Work Phone: Mental Status Date Assessment Result Facility 01-19-2022 Mental Status Orientation Orie nted x 4 [facility] NEGATED: Highlighted row Cognitive function [Interpretation] Cognitive status health issues are not documented Disease [facility] Work Phone: Hospital Discharge instructions 01-19-2022 Note Date & Type Note Facility 01-19-2022 Hospital Discharg e instructions Patient Education 01/19/2022 14:42:35 Paronychia of the Finger or Toe Paronychia of the Finger or Toe Paronychia is an infection near a fingernail or toenail. It usually occurs when an opening in the cuticle or an ingrown toenail lets bacteria under the skin. The infection will need to be drained if pus is present. If the infection has been caught early, you may need only antibiotic treatment. Healing will take about 1 to 2 weeks. Home care Follow these guidelines when caring for yourself at home: Clean and soak the toe or finger. Do this 2 times a day for the first 3 days. To do so: oSoak your foot or hand in a tub of warm water for 5 minutes. Or hold your toe or finger under a faucet of warm running water for 5 minutes. oClean any crust away with soap and water using a cotton swab. oPut antibiotic ointment on the infected area. Change the dressing daily or any time it gets dirty. If you were given antibiotics, take them as directed until they are all gone. If your infection is on a toe, wear comfortable shoes with a lot of toe room. You can also wear open-toed sandals while your toe heals. You may use ixhb-vlp-svpycvi medicine (acetaminophen or ibuprofen to help with pain, unless another medicine was prescribed. If you have chronic liver or kidney disease, talk with your healthcare provider before using these medicines. Also talk with your provider if you've had a stomach ulcer or GI (gastrointestinal) bleeding. Prevention The following can prevent paronychia: Avoid cutting or playing with your cuticles at home. Don't bite your nails. Don't suck on your thumbs or fingers. Follow-up care Follow up with your healthcare provider, or as advised. When to seek medical advice Call your healthcare provider right away if any of these occur: Redness, pain, or swelling of the finger or toe gets worse Red streaks in the skin leading away from the wound Pus or fluid draining from the nail area Fever of 100.4 F (38 C) or higher, or as directed by your provider [id number] [employer]. [address] [place] [address]. All rights reserved. This information is not intended as a substitute for professional medical care. Always follow your healthcare professional's instructions. Follow Up Care 01/19/2022 13:41:14 With:Go to emergency room if symptoms worsen Address:Unknown When:2-4 days With:Follow up with primary care provider Address:Unknown When:2-4 days [facility] Emergency department Discharge summary 01-19-2022 Note Date & Type Note Facility 01-19-2022 Emergency department Discharge summary Discharge Instructions Thank you for allowing [facility] to assist you with your healthcare needs. The following is important discharge information regarding your hospital visit. Diagnosis from Today's Visit Paronychia of thumb Finger pain-swelling What to Do Next Instructions from Your Care Team No qualifying data available. Post Acute Orders No qualifying data available. You Need to Schedule the Following Appointments Follow Up with Go to emergency room if symptoms worsen When Within 2-4 days Follow Up with Follow up with primary care provider When Within 2-4 days Allergies No active allergies Medications Please ask your primary doctor or pharmacist before taking any other medication not listed, including over the counter drugs, herbal medications, vitamins and or supplements as they may interact with your home medications. Please take this list to your next doctor s visit. Bring all medications you take, including over the counter medications, herbals and other supplements with you to your doctor s visit. Patients and families are reminded to discard old lists and to update any records with all medication providers or retail pharmacies. Education Materials Paronychia of the Finger or Toe Paronychia is an infection near a fingernail or toenail. It usually occurs when an opening in the cuticle or an ingrown toenail lets bacteria under the skin. The infection will need to be drained if pus is present. If the infection has been caught early, you may need only antibiotic treatment. Healing will take about 1 to 2 weeks. Home care Follow these guidelines when caring for yourself at home: Clean and soak the toe or finger. Do this 2 times a day for the first 3 days. To do so: oSoak your foot or hand in a tub of warm water for 5 minutes. Or hold your toe or finger under a faucet of warm running water for 5 minutes. oClean any crust away with soap and water using a cotton swab. oPut antibiotic ointment on the infected area. Change the dressing daily or any time it gets dirty. If you were given antibiotics, take them as directed until they are all gone. If your infection is on a toe, wear comfortable shoes with a lot of toe room. You can also wear open-toed sandals while your toe heals. You may use merl-coi-eiykayq medicine (acetaminophen or ibuprofen to help with pain, unless another medicine was prescribed. If you have chronic liver or kidney disease, talk with your healthcare provider before using these medicines. Also talk with your provider if you've had a stomach ulcer or GI (gastrointestinal) bleeding. Prevention The following can prevent paronychia: Avoid cutting or playing with your cuticles at home. Don't bite your nails. Don't suck on your thumbs or fingers. Follow-up care Follow up with your healthcare provider, or as advised. When to seek medical advice Call your healthcare provider right away if any of these occur: Redness, pain, or swelling of the finger or toe gets worse Red streaks in the skin leading away from the wound Pus or fluid draining from the nail area Fever of 100.4 F (38 C) or higher, or as directed by your provider [phone] [employer]. [address] [place] [address], [place] [address]. All rights reserved. This information is not intended as a substitute for professional medical care. Always follow your healthcare professional's instructions. Additional Information VACCINATE! IT SAVES LIVES! Members of the community who have not yet received the COVID-19 vaccine and would like to receive it can visit one of [facility] vaccine clinics. There are many vaccine clinic locations within the [facility]. For locations and available times, please visit [email or web address]. It is important to note that some COVID mobile vaccine clinics are held outdoors and may be canceled in rainy or stormy conditions. To learn more about pediatric vaccinations (ages 5-11), we invite you to visit the [facility] [employer] [facility] webpage. [email or web address] To learn more about the COVID-19 vaccine, we invite you to visit the [facility] website for a list of frequently asked questions. [email or web address] [email or web address] [facility] Patient Portal Access Instructions: Stay connected with your healthcare team and access your personal medical information anytime with the [facility] Patient Portal. If you would like a full copy of your medical records please contact the [facility] Medical Records Department Monday through Monday between 8a.m. and 4:30p.m. Please follow the directions below to access the portal: 1.Access the email account you provided upon registration to the [facility].2.Look for an invitation email from [facility].3.Open the email and access the invitation link: Accept Invitation to [employer].ly4.Fill in the required mcneil to create your account. Sign into [email or web address] with your username and password that you created in the above steps to stay up to date. You can then view a summary of results, a summary of your visits, and the ability to download your summaries to your computer or send the information securely to a physician. Remember that your healthcare information is confidential, so carefully consider who you will allow to register on the [facility] Patient Portal for access to your information. You can also access the [facility] Patient Portal on the [employer]. Simply click on Health Records under [employer] and then click on the [employer] logo. HOW TO SAFELY DISPOSE OF PRESCRIPTION MEDICATIONS Please use one of the following methods to safely dispose of your unused medications. 1.Use a drug disposal kit: the drug disposal pouch allows you to safely discard your old and unused drugs. Ask your nurse to give you one when you are discharged.2.Visit a local take-back location: Many local pharmacies and police departments have programs that collect old and unwanted prescription drugs. Call your local pharmacy or go to http://[employer]/0W1Kc3x to find one close to you.3.Make use of household items: Use cat litter or old coffee grounds to dispose medications if other options are not available. Mix your drugs with these household products, seal them in an airtight container and throw it into the garbage. Call [facility]: [phone] to be sure your drugs can be disposed of in this way. Some medicines may require a different approach.4.Never flush your medications down the toilet. IF YOU HAVE BEEN PRESCRIBED AN OPIOIDS FOR PAIN If you have been prescribed an opioid (such as hydrocodone, oxycodone or morphine), it is critical to understand the possible side effects and risks of opioid pain medications. Even when taken as directed, opioids can have several side effects including: Tolerance, meaning you might need to take more of a medication for the same pain relief. Nausea, vomiting and/or constipation. Sleepiness, dizziness, dry mouth, confusion, depression or itching. Physical dependence, meaning you have withdrawal symptoms when a medication is stopped ? this can develop within a few days. KNOW YOUR RESPONSIBILITIES It is important to know exactly how much and how often to take the opioid pain medications you are prescribed. Never take opioids in higher amounts or more often than prescribed. Do not combine opioids with alcohol or other drugs that cause drowsiness, such as benzodiazepines, also known as benzos, including diazepam and alprazolam, muscle relaxants or sleep aids. Never sell or share prescription opioids. This is illegal. Store opioids in a secure place and out of reach of others (including children, family, friends and visitors). The last page(s) of this document has been signed and retained as a CHART COPY Signatures Patient Education Materials Paronychia of the Finger or Toe Medication Leaflets My discharge plan and instructions have been reviewed and explained to me and ISTELLA TRICIA L understand my current condition and have read and understand these discharge instructions. I have received a written copy of the plan/instructions. If I have questions, I am aware that I should contact my doctor. Patient/Outside Sales Engineer Signature: Date/Time: Relationship to Patient: ____ Witness Name/Signature: Date/Time: [facility] Evaluation + Plan note Note Date & Type Note Facility Evaluation + Plan note No data available for this section [facility] Summary Purpose Family History No Family History Records Found Sibling Name Dates Details Family history of kidney sto eliza(V18.69, Z84.1) Status:Active Mother Name Dates Details Family history of kidney sto eliza(V18.69, Z84.1) Status:Active Advance Directives No Advanced Directives Records FoundNo Advanced Directives Records FoundNo Advanced Directives Records FoundNo Advanced Directives Records FoundNo Advanced Directives Records Found Additional Source Comments INFORMATION SOURCE (unrecogn ized section and content) DATE CREATED AUTHOR AUTHOR'S ORGANIZ ATION 09/30/2019 [employer] DATE CREATED AUTHOR AUTHOR'S ORGANIZ ATION 11/15/2019 [facility] DATE CREATED AUTHOR AUTHOR'S ORGANIZ ATION 02/18/2022 [facility] DATE CREATED AUTHOR AUTHOR'S ORGANIZ ATION 04/01/2023 [facility] Care Team (unrecognized sect ion and content) Care Team Personnel Name: PHYSICIAN, NONE Position: Physician Member Role: Primary Care Physician Name: MARITZA BURGOS DO Position: Resident Member Role: Resident Address: Address: [address] [place] [address] [place] [address] FOR RECORDS PERTAINING TO PATIENTS WHO ARE OR HAVE BEEN ENROLLED IN A CHEMICAL DEPENDENCY/SUBSTANCEABUSE PROGRAM, SOME INFORMATION MAY BE OMITTED. This clinical summary was aggregated from multiple sources. Caution should be exercised in using it in the provision of clinical care. This summary normalizes information from multiple sources, and as a consequence, information in this document may materially change the coding, format and clinical context of patient data. In addition, data may be omitted in some cases. CLINICAL DECISIONS SHOULD BE BASED ON THE PRIMARY CLINICAL RECORDS. [employer] provides no warranty or guarantee of the accuracy or completeness of information in this document.
[2023-04-22 07:09] LABS: HPV APTIMA, High Risk Negative (Negative)
== END | disposition home or self-care (01) ==
PROVIDERS: PCP Internal Medicine; Visit Provider Advanced Practice Midwife
DX: Z12.4 Encounter for screening for malignant neoplasm of cervix (principal)
CPT/HCPCS: 87624; 88175; G0145

== ENCOUNTER → 2023-05-05 | Outpatient (CLI) | payer MEDICAID, SELFPAY ==
--- NOTE | 2023-05-05 12:12 | US_ITS ---
INDICATION: abnormal uterine bleeding EXAMINATION: Ultrasound US Transvaginal Non-OB TECHNIQUE: Transvaginal (for optimal evaluation of the adnexa) pelvic ultrasound was performed. Grayscale, spectral waveform, and color flow Doppler evaluation of the adnexa. COMPARISON: No relevant prior comparison study available FINDINGS: UTERUS: Anteverted. The uterus measures 9.2 x 5.6 x 5.2 cm. There is a mass in the anterior wall of the uterus measuring about 3.2 x 2.8 x 3.5 cm consistent with uterine fibroid. Nabothian cysts are seen in the cervix measuring about 7 mm. The endometrial stripe measures 15 mm in AP diameter which is borderline in thickness. RIGHT OVARY: Not visualized. Status post right oophorectomy. LEFT OVARY: 3.8 x 3.7 x 1.9 cm. Small cyst is seen measuring about 2.3 cm. There is a prominent follicle measuring about 1.7 cm. There is normal arterial inflow and venous outflow present in the left ovary. FREE FLUID: None. US/Transvaginal Non- IMPRESSION: 1. Uterine fibroid. 2. Borderline thickening of the endometrium. Follow-up examination following one or 2 menstrual cycles is recommended. 3. Status post right oophorectomy. Electronically Signed: Tomás Patel MD at 15:46 EST ,
--- OUTSIDE RECORDS SUMMARY | 2023-05-05 12:30 | XMS RPT_ITS | CCD ---
Author Name Unknown Address [address] [place] [address] Organization [facility] Care Team Providers Care Dishtank Operator Name Role Phone DONCA, CARMEN Unavailable Unavailable [...] Care Unavailable WAQAR SADLER Admitting Unavailable KARISSA TEHODORE MD Referring Unavailable KARISSA THEODORE MD Consulting Unavailable PROVIDER, UNKNOWN Consulting Unavailable ALIREZA CAI DO Attending Unavailable ALIREZA CAI DO Primary Care Unavailable ALIREZA CAI DO Admitting Unavailable Allergies Allergy Classification Reported Allergen(s) Allergy Type Date of Onset Reaction(s) Facility (1 source) Azithromycin Drug Allergy [facility]: Medications Completed/Discontinued Medications Medication [...] Refills: 0 DO Active polyethylene glycol 3350 485151 mg / potassium chloride 2970 mg / sodium bicarbonate 6740 mg / sodium chloride 5860 mg / sodium sulfate 05974 mg powder for oral solution (1 source) [...] 13:50-0500 Blood Pressure Location CALVIN SILVA MD [facility] 01-19-2022 13:50-0500 Blood Pressure Method CALVIN SILVA MD [facility] 01-19-2022 13:50-0500 Body temperature 97.7 [degF] CALVIN SILVA MD [facility] 01-19-2022 13:50-0500 Diastolic Blood Pressure Non-Invasive 76 1 CALVIN SILVA MD [facility] 01-19-2022 13:50-0500 Heart rate 86 /min CALVIN SILVA MD [facility] 01-19-2022 13:50-0500 Respiratory rate 18 /min CALVIN SILVA MD [facility] 01-19-2022 13:50-0500 Systolic Blood Pressure Non-Invasive 147 1 CALVIN SILVA MD [facility] Encounters Encounter Date Encounter Type Care Provider Facility Start: 03-30-2023 End: 03-31-2023 Emergency department patient visit WAQAR SADLER [facility] Start: 11-25-2022 End: 11-26-2022 Emergency department patient visit ALIREZA KAHN [facility] Start: 01-19-2022 End: 01-19-2022 Emergency department patient visit CALVIN SILVA MD Facility:B Start: 01-19-2022 End: 01-19-2022 Emergency department patient visit CALVIN SILVA MD [facility] Start: 06-20-2017 Ambulatory CARMEN DONCA Facility: UNKNOWN [...] [place] Payers Date Payer Category Payer Unknown [id number] 1980 Unknown [id number] 1980 Unknown [id number] 1980 Unknown [id number] Unknown [id number] Social History Date Type Detail Facility Tobacco smoking status No Smoking Status Entered [facility] Sex Assigned At Female [facility] NEGATED: Highlighted row - - - [facility] Work Phone: Functional Status Date Assessment Result Facility 01-19-2022 Functional Status Standard Safet y ID band on, Call device within reach, Bed in low position, Wheels locked, Upper/Half-Length side-rails up, personal items within reach, Bedside Cart Locked, Visitor at bedside, Safety level maintained [facility] NEGATED: Highlighted row Functional performance Functional status health issues are not documented Disease [facility] Work Phone: Mental Status Date Assessment Result Facility 01-19-2022 Mental Status Orientation Orie nted x 4 [facility] NEGATED: Highlighted row Cognitive function [Interpretation] Cognitive status health issues are not documented Disease [facility] Work Phone: Hospital Discharge instructions 01-19-2022 [...] while your toe heals. You may use bnmd-ogr-ilsxvzq medicine (acetaminophen or ibuprofen to help with [...] higher, or as directed by your provider [id number] [employer]. [address] [place] [address]. All rights reserved. This information is not intended as a substitute for professional medical care. Always follow your healthcare professional's instructions. Follow Up Care 01/19/2022 13:41:14 With:Go to emergency room if symptoms worsen Address:Unknown When:2-4 days With:Follow up with primary care provider Address:Unknown When:2-4 days [facility] Emergency department Discharge summary 01-19-2022 Note Date & Type Note Facility 01-19-2022 Emergency department Discharge summary Discharge Instructions Thank you for allowing [facility] to assist you with your healthcare needs. [...] while your toe heals. You may use kgxm-jgu-gbzfzgv medicine (acetaminophen or ibuprofen to help with [...] higher, or as directed by your provider [phone] [employer]. [address] [place] [address], [place] [address]. All rights reserved. This information is not intended as a substitute for professional medical care. Always follow your healthcare professional's instructions. Additional Information VACCINATE! IT SAVES LIVES! Members of the community who have not yet received the COVID-19 vaccine and would like to receive it can visit one of [facility] vaccine clinics. There are many vaccine clinic locations within the [facility]. For locations and available times, please visit [email or web address]. It is important to note that some COVID mobile vaccine clinics are held outdoors and may be canceled in rainy or stormy conditions. To learn more about pediatric vaccinations (ages 5-11), we invite you to visit the [facility] webpage. [email or web address] To learn more about the COVID-19 vaccine, we invite you to visit the [facility] website for a list of frequently asked questions. [email or web address] [email or web address] [facility] Access Instructions: Stay connected with your healthcare team and access your personal medical information anytime with the [facility] Patient Portal. If you would like a full copy of your medical records please contact the [facility] Medical Records Department Monday through Monday between 8a.m. and 4:30p.m. Please follow the directions below to access the portal: 1.Access the email account you provided upon registration to the [facility].2.Look for an invitation email from [facility].3.Open the email and access the invitation link: Accept Invitation to [facility]4.Fill in the required mcneil to create your account. Sign into [email or web address] with your username and password that you [...] you will allow to register on the [facility] Patient Portal for access to your information. You can also access the [facility] Patient Portal on the [employer]Recall. Simply click on Health Records under [facility] Data and then click on the Recommend logo. HOW TO SAFELY DISPOSE OF PRESCRIPTION [...] Call your local pharmacy or go to [email or web address] to find one close to you.3.Make use of household items: Use cat litter or old coffee grounds to dispose medications if other options are not available. Mix your drugs with these household products, seal them in an airtight container and throw it into the garbage. Call [facility]: [phone] to be sure your drugs can be [...] aware that I should contact my doctor. Patient/Real Property Appraiser Signature: Date/Time: Relationship to Patient: ____ Witness Name/Signature: Date/Time: [facility] Evaluation + Plan note Note Date & Type Note Facility Evaluation + Plan note No data available for this section [facility] Summary Purpose Family History No Family History [...] DATE CREATED AUTHOR AUTHOR'S ORGANIZ ATION 09/30/2019 [facility] DATE CREATED AUTHOR AUTHOR'S ORGANIZ ATION 11/15/2019 [facility] DATE CREATED AUTHOR AUTHOR'S ORGANIZ ATION 02/18/2022 [facility] DATE CREATED AUTHOR AUTHOR'S ORGANIZ ATION 04/[facility]20[facility] Care Team (unrecognized sect ion and content) Care Team Personnel Name: PHYSICIAN, NONE Position: Physician Member Role: Primary Care Physician Name: MARITZA BURGOS DO Position: Resident Member Role: Resident Address: Address: [address] [place] [address] [place] [address] FOR RECORDS PERTAINING TO PATIENTS WHO ARE [...] BE BASED ON THE PRIMARY CLINICAL RECORDS. [employer] provides no warranty or guarantee of the accuracy or completeness of information in this document.
== END | disposition home or self-care (01) ==
LOC: US 12:11
PROVIDERS: PCP Internal Medicine; Referring Provider Advanced Practice Midwife; Visit Provider Advanced Practice Midwife
DX: N93.9 Abnormal uterine and vaginal bleeding, unspecified (principal)
CPT/HCPCS: 76830

== ENCOUNTER → 2023-05-24 | Outpatient (CLI) | payer MEDICAID, SELFPAY | END | disposition home or self-care (01) | LOC: PSN 10:54 | PROVIDERS: PCP Internal Medicine; Referring Provider Internal Medicine Critical Care Medicine; Visit Provider Internal Medicine Critical Care Medicine | DX: R91.1 Solitary pulmonary nodule (principal); F17.200 Nicotine dependence, unspecified, uncomplicated | CPT/HCPCS: 94060; 94726; 94729 ==

== ENCOUNTER → 2023-06-08 | Outpatient (CLI) | payer MEDICAID, SELFPAY ==
--- NOTE | 2023-06-08 10:25 | EMB_PTH ---
PATIENT: SERGE DOUGLAS LOC: [facility] #:[id number] AGE/SX: 42/F ROOM: RE06/08/[address]: COLUMBA Zaidi : 1980 BED: DIS: 06/08/2023 SPEC #: [id number] RECD: 06/08/23 11:50 STATUS: HUGH REHakeem #: [id number] IVONNE: 06/08/23 10:[address]: Alexa Nathan NP DEPT: SURGICAL PATHOLOGY RECD BY: Elvira Nielson ENTERED: 06/08/23 13:27 SP TYPE: ENDOM BX/C ALETHA DR: Dr. Karissa Verma MD Tissues: Endometrium, NOS Procedures: Surgery Specimen Level IV HEADER OPERATION: Endometrial biopsy PRE-OP DIAGNOSIS: Abnormal uterine bleeding TISSUE SUBMITTED: Endometrial tissue MICROSCOPIC DIAGNOSIS Endometrial biopsy: Mildly disordered proliferative endometrium with extensive glandular and stromal breakdown. SJ/mr 06/09/23 MICROSCOPIC DESCRIPTION Slides are reviewed. GROSS DESCRIPTION Received is one container labeled with the patient's name and not further designated. The specimen consists of multiple irregular fragments of hemorrhagic soft tissue that in aggregate measure 2.5 x 2.0 x 0.1 cm. The specimen is totally submitted in one cassette. DONOVAN/ 06/08/23 TC:5 CPT:82986
== END | disposition home or self-care (01) ==
LOC: LABSPEC 11:52
PROVIDERS: PCP Internal Medicine; Referring Provider Nurse Practitioner Women's Health; Visit Provider Nurse Practitioner Women's Health
DX: N93.9 Abnormal uterine and vaginal bleeding, unspecified (principal)
CPT/HCPCS: 88305

== ENCOUNTER → 2023-08-30 | Outpatient (CLI) | payer MEDICAID, SELFPAY | END | disposition home or self-care (01) | PROVIDERS: PCP Internal Medicine; Referring Provider Nurse Practitioner Women's Health; Visit Provider Nurse Practitioner Women's Health | DX: N30.01 Acute cystitis with hematuria (principal); R30.0 Dysuria | CPT/HCPCS: 87077; 87086; 87088; 87186 ==

== ENCOUNTER → 2023-09-01 | Outpatient (CLI) | payer MEDICAID, SELFPAY ==
[2023-09-01 13:23] LABS: Absolute Lymphocyte Count 2.36 X10^3/uL (0.83-4.51); Absolute Neutrophil Count 4.8 X10^3/uL (2.0-7.7); Basophil# 0.06 X10^3/uL; Basophil% 0.8 % (0-1); Eosinophils% 2.5 % (0-5); Hematocrit 43.9 % (37-47); Hemoglobin 14.6 g/dL (12.0-15.0); Lymphocyte # 2.36 X10^3/ul (0.83-4.51); Lymphocyte % 29.9 % (19-41); Mean Corp Hgb Conc 33.3 g/dL (32-36); Mean Corpuscular Volume 90.1 fL (81-99); Mean Platelet Vol. 10.5 fl (6.2-12.0); Monocyte# 0.48 X10^3/uL; Monocyte% 6.1 % (0-10); NRBC Flagged by Analyzer 0 % (0-5); Neutrophil # 4.77 X10^3/uL (2.7-7.7); Neutrophil % 60.4 % (47-70); Platelet Count 186 K/mm3 (150-450); RBC Distribution Width CV 14.2 % (11.6-14.6); Red Blood Count 4.87 M/mm3 (4.2-5.4); White Blood Count 7.9 K/mm3 (4.4-11.0)
[2023-09-01 13:50] LABS: ALB/GLOB Ratio 0.9 RATIO (0.9-2.4); AST(SGOT) 55 U/L (15-37); Alanine Aminotransfer ALT/SGPT 49 U/L (13-56); Albumin, Serum 3.4 g/dL (3.2-5.0); Alkaline Phosphatase 90 U/L (45-117); Anion Gap 8 (5-15); BUN 8 mg/dL (7-18); BUN/Creat Ratio 10.8 RATIO (10-20); Calcium,Total 9.4 mg/dL (8.5-10.1); Chloride 107 mmol/L (98-107); Creatinine, Serum 0.74 mg/dL (0.55-1.02); EST Glomerular Filtration Rate 90 mL/min (>60); Est Glom Filt Rate - Afr Amer 109 mL/min (>60); Globulin 3.8 g/dL (2.2-4.2); Glucose 183 mg/dL (74-106); Potassium 3.8 mmol/L (3.5-5.1); Protein, Total 7.2 g/dL (6.4-8.2); Sodium Level 138 mmol/L (136-145)
== END | disposition home or self-care (01) ==
LOC: BIMLAB 11:29
PROVIDERS: PCP Internal Medicine; Referring Provider Internal Medicine; Visit Provider Internal Medicine
DX: F41.9 Anxiety disorder, unspecified (principal); F32.9 Major depressive disorder, single episode, unspecified; I10 Essential (primary) hypertension
CPT/HCPCS: 36415; 80053; 85025

== ENCOUNTER → 2023-09-06 | Outpatient (CLI) | payer MEDICAID, SELFPAY | END | disposition home or self-care (01) | LOC: BIMLAB 12:15 | PROVIDERS: PCP Internal Medicine; Visit Provider Internal Medicine | DX: R73.9 Hyperglycemia, unspecified (principal) | CPT/HCPCS: 36415; 83036 ==

== ENCOUNTER → 2023-10-03 | Outpatient (CLI) | payer MEDICAID, SELFPAY ==
--- NOTE | 2023-10-03 13:03 | US_ITS ---
INDICATION: UTI EXAMINATION: Ultrasound US Kidney(s) complete (eg, kidneys and bladder) TECHNIQUE: Hernandez scale and color doppler images were obtained of the kidneys. COMPARISON: Prior study dated: CT from 03/30/2023 FINDINGS: RIGHT KIDNEY: 11.1 x 5.8 x 4.6 cm. There is no hydronephrosis. No shadowing calculus or perinephric collection is demonstrated. Simple cyst at the midpole measuring 1.4 x 1.3 x 0.8 cm. No specific follow-up is recommended. LEFT KIDNEY: 12.9 x 5.7 x 5.4 cm. There is no hydronephrosis. No shadowing calculus, focal lesion or perinephric collection is demonstrated. URINARY BLADDER: No acute abnormality. US/Kidney and Bladder IMPRESSION: Negative renal ultrasound. Electronically Signed: Vikram Vale MD at 14:10 EDT ,
== END | disposition home or self-care (01) ==
LOC: US 13:03
PROVIDERS: PCP Internal Medicine; Referring Provider Urology; Visit Provider Urology
DX: N39.0 Urinary tract infection, site not specified (principal)
CPT/HCPCS: 76770

== ENCOUNTER → 2024-05-22 | Outpatient (CLI) | payer OTHER, SELFPAY ==
[2024-05-22 17:09] LABS: Absolute Neutrophil Count 5.6 X10^3/uL (2.0-7.7); Basophil# 0.07 X10^3/uL; Basophil% 0.8 % (0-1); Eosinophil# 0.22 X10^3/uL; Eosinophils% 2.4 % (0-5); Hemoglobin 14.5 g/dL (12.0-15.0); Lymphocyte % 30.3 % (19-41); Mean Corp Hgb Conc 33.7 g/dL (32-36); Mean Corpuscular Hgb 29.7 pg (27.0-32.0); Mean Corpuscular Volume 88.1 fL (81-99); Mean Platelet Vol. 10.6 fl (6.2-12.0); Monocyte# 0.53 X10^3/uL; Monocyte% 5.7 % (0-10); NRBC Flagged by Analyzer 0 % (0-5); Neutrophil % 60.5 % (47-70); Platelet Count 223 K/mm3 (150-450); RBC Distribution Width CV 13.4 % (11.6-14.6); RBC Distribution Width SD 43.2 fl (35.1-43.9); Red Blood Count 4.88 M/mm3 (4.2-5.4); White Blood Count 9.3 K/mm3 (4.4-11.0)
[2024-05-22 20:37] LABS: Cholesterol 226 mg/dL (<=200); High Density Lipoprotein 34 mg/dL; Low Density Lipoprotein Calc. 102 mg/dL; Triglycerides 452 mg/dL; Very Low Density Lipoprotein 90 mg/dL (5-40); cholesterol:hdl ratio screen 6.65
[2024-05-22 20:46] LABS: Hemoglobin A1c 6.8 % (<=5.6)
[2024-05-22 21:02] LABS: ALB/GLOB Ratio 1.4 RATIO (0.9-2.4); AST(SGOT) 58 U/L (<=31); Alanine Aminotransfer ALT/SGPT 37 U/L (<=34); Albumin, Serum 4.2 g/dL (3.5-5.0); Alkaline Phosphatase 117 U/L (35-104); Anion Gap 13 (5-15); BUN 9 mg/dL (4-19); BUN/Creat Ratio 15.2 RATIO (10-20); Calcium,Total 9.3 mg/dL (7.6-11.0); Carbon Dioxide 21.4 mmol/L (21.0-32.0); Chloride 103 mmol/L (98-108); Creatinine, Serum 0.58 mg/dL (0.70-1.20); EST Glomerular Filtration Rate 114 (>60); Globulin 3.1 g/dL (2.2-4.2); Glucose 109 mg/dL (70-99); Potassium 3.9 mmol/L (3.3-5.1); Protein, Total 7.2 g/dL (5.9-8.4); Sodium Level 138 mmol/L (133-145); Total Bilirubin 0.35 mg/dL (0.00-1.30)
== END | disposition home or self-care (01) ==
LOC: BIMLAB 15:30
PROVIDERS: PCP Internal Medicine; Referring Provider Internal Medicine; Visit Provider Internal Medicine
DX: R73.03 Prediabetes (principal)
CPT/HCPCS: 36415; 80053; 80061; 83036; 85025

== ENCOUNTER → 2024-08-01 | Outpatient (CLI) | payer OTHER, SELFPAY ==
--- NOTE | 2024-08-01 13:00 | BI_ITS ---
EXAM: SCRN MAMM (CAD)W/LIAT BILAT DATE: 08/01/2024 CLINICAL HISTORY: F, Age 43 y/o , BREAST CANCER SCREENING BREAST CANCER RISK ASSESSMENT: Na TECHNIQUE: Bilateral screening digital breast tomosynthesis with 2D and 3D images. Computer aided detection. COMPARISON: Prior exam(s) were compared FINDINGS: TISSUE DENSITY: The breast tissue is heterogenously dense, which may obscure small masses. Bilateral Breast Mammographic Findings: No suspicious masses, calcifications or other abnormalities are identified. BI/SCRN MAMM (CAD)W/LIAT BILAT IMPRESSION: OVERALL FINAL ASSESSMENT: BIRADS 1 NEGATIVE RECOMMENDATION: Routine annual follow-up in 1 Year A letter with findings and recommendations will be mailed to the patient. Reading Location: [id number]
== END | disposition home or self-care (01) ==
LOC: OPBI 13:00
PROVIDERS: PCP Internal Medicine; Referring Provider Internal Medicine; Visit Provider Internal Medicine
DX: Z12.31 Encounter for screening mammogram for malignant neoplasm of breast (principal)
CPT/HCPCS: 77063; 77067

== ENCOUNTER → 2025-02-07 | Outpatient (CLI) | payer OTHER, SELFPAY ==
[2025-02-07 12:56] LABS: Cholesterol 214 mg/dL (<=200); Low Density Lipoprotein Calc. 135 mg/dL; Triglycerides 256 mg/dL; Very Low Density Lipoprotein 51 mg/dL (5-40); cholesterol:hdl ratio screen 6.58
[2025-02-07 13:01] LABS: Vitamin B12 261 pg/mL (180-914); Vitamin D,25 Hydroxy 7.6 ng/mL (30-100)
== END | disposition home or self-care (01) ==
PROVIDERS: PCP Internal Medicine; Visit Provider Nurse Practitioner Family
DX: E78.1 Pure hyperglyceridemia (principal); E11.9 Type 2 diabetes mellitus without complications; R53.83 Other fatigue
CPT/HCPCS: 36415; 80061; 82306; 82607; 84443